=== PATIENT | female | born 1940 | race Caucasian/White ===

== ENCOUNTER → 2017-04-10 | Outpatient (CLI) | payer BC ==
--- NOTE | 2017-04-10 13:45 | DIAGNOSTIC IMAGING REPORT ---
C-SPINE ROUTINE 4 OR 5 VIEWS CLINICAL HISTORY: M54.2 Neck [id number] COMPARISON STUDY: No previous studies for comparison. FINDINGS: The prevertebral soft tissues are normal. No fractures or subluxations are visualized. The bony neural foramina are patent bilaterally. There are degenerative changes with disc space narrowing the C5-6 and C6-7 levels. There is a possible C2-3 posterior element segmentation anomaly IMPRESSION: Degenerative changes the C5-6 and C6-7 levels. No fractures or traumatic subluxations identified. Electronically signed by: Brian Mitchell M.D. 04/10/2017 1:43 PM Dictated Date/Time: 04/10/2017 1:42 PM
== END | disposition home or self-care (01) ==
LOC: C.RAD1850 13:19
PROVIDERS: ATTEND Internal Medicine
DX: M54.2 Cervicalgia (principal); M50.322 Other cervical disc degeneration at C5-C6 level; M50.323 Other cervical disc degeneration at C6-C7 level